=== PATIENT | female | born 2000 | race Caucasian/White ===

== ENCOUNTER 2025-02-27 13:29 | Emergency (ER) | payer MEDICAID, SELFPAY ==
[2025-02-27 13:48] VITALS: BP 115/69
[2025-02-27 14:26] LABS: Hematocrit 44.3 % (37.0-47.0); Hemoglobin 14.9 g/dL (12.0-16.0); Mean Corp Hgb Conc. 33.6 g/dL (33.0-37.0); Mean Corpuscular Volume 87.9 fL (81.0-99.0); Nucleated Red Blood Cells % 0 %; Platelet Count 286 10^3/uL (130-400); Red Cell Dist. Width 12.7 % (11.5-14.5)
[2025-02-27 14:39] LABS: HCG, Serum Qualitative Screen Negative
[2025-02-27 14:44] LABS: ALT (SGPT) 38 U/L (0-35); AST (SGOT) 31 U/L (14-36); Albumin 4.6 g/dl (3.5-5.0); Alkaline Phosphatase 72 U/L (38-126); Blood Urea Nitrogen 12 mg/dl (7-17); Calcium 9.7 mg/dl (8.4-10.2); Carbon Dioxide 28 mmol/L (22-30); Chloride 102 mmol/L (98-107); Glucose 87 mg/dl (70-99); Potassium 4.4 mmol/L (3.5-5.1); Sodium 137 mmol/L (135-145); Total Protein 7.4 g/dl (6.3-8.2); eGFR > 60.00
--- NOTE | 2025-02-27 16:57 | ED.GENMED ---
History of Present Illness
General
Chief Complaint: Anxiety
Source: patient
Time Seen by Provider: 02/27/25 16:36
History of Present Illness
History of Present Illness:
24-year-old female presenting to the ER for evaluation after experiencing a panic attack for multiple hours this morning, by the time arrived to the ER feeling much better and when I enter the room patient stating she would like to go home. Patient
states that her stress and anxiety is related to having to move 5 times within the last 6 months to keep, currently have a move out of her current living situation earlier today. Patient without any current physical concerns. Notes that she has a
therapist and psychiatrist that she is scheduled to see this coming week
Past History
Past History
ED Past Medical History: Psychiatric
ED Past Surgical History: None
Social History
Tobacco: Non-smoker
Alcohol: None
Drug: None
Personal: Partner
Living: with family
Review of Systems
Review of Systems
All Other Systems: ROS reviewed and negative except as documented in HPI and ROS
Phy Exam
Physical Exam
Physical Exam:
GENERAL: Alert , in no apparent distress making minimal eye contact
EYE: conjunctiva clear
Head: Normocephalic atraumatic
NECK: Supple,
ENT: mmm.
LUNGS: no acute respiratory distress
NEUROLOGICAL: Alert and oriented
SKIN: Warm and dry, skin intact.
MUSCULOSKELETAL: well perfused.
PSYCH: Normal and appropriate interaction.
Scores
Heart Failure Risk
Heart Failure Risk Score: Not Applicable
Heart Score for Chest Pain Patients
STEMI patient?: Not applicable
Withdrawal Assessment of Alcohol
Withdrawal Assessment Completed?: Not applicable
Course
Orders/Labs/Results
Orders:
Orders
02/27/25 13:56
Test Result ONCE
02/27/25 14:10
Complete Blood Count/With Diff Urgent
Comprehensive Metabolic Panel Urgent
HCG, Serum Qualitative Screen Urgent
Abnormal Lab Results
02/27/25
14:10
ALT 38 H U/L
(0-35)
02/27/25 14:10
02/27/25 14:10
Vital Signs
Initial and Last Documented VS:
Initial Vital Signs
Temp Pulse Resp BP Pulse Ox
98.5 F 84 18 115/69 97
02/27/25 13:48 02/27/25 13:48 02/27/25 13:48 02/27/25 13:48 02/27/25 13:48
Last Documented Vital Signs
Temp Pulse Resp BP Pulse Ox
98.5 F 84 18 115/69 97
02/27/25 13:48 02/27/25 13:48 02/27/25 13:48 02/27/25 13:48 02/27/25 16:57
MDM/Problems Addressed
Differential Diagnosis Includes:
Stress/Anxiey/Panic Disorder
Adjustment disorder
No SI/HI
No clinical concern for emergent physical process
MDM/Problems Addressed:
24-year-old female presenting to the ER with partner for evaluation of what appears to be anxiety/panic attack that has since resolved. Patient wishing to be discharged home. No SI or HI. Patient has outpatient follow-up already arranged.
Patient aware of return precautions to the ER.
Chronic conditions affecting care: Psychiatric illness
Acute Exacerbation and/or Progression of Chronic Illness: Psychiatric illness
*Pulse Oximetry
SaO2: 97
Oxygen Mode of Delivery: Room air
Patient hypoxic: no
*Critical Care Note
Total Time (30-74mins, 75-104mins- exclusive of procedures): Not Applicable
ED Attending Note
-
Portions of this chart may have been created with voice recognition software.� Occasional wrong word or��sound alike� substitutions may have occurred due to the inherent limitations of voice recognition software.
Discharge Plan
Departure
Patient Disposition: Home (Routine Discharge)
Date of Disposition: 02/27/25
Time of Disposition: 16:57
Patient with high blood pressure during this ER visit?: No
Discharge Problem:
Anxiety
Instructions: Anxiety, Adult (DC)
Interventions
Interventions:
*Risk Screen - Suicide Last Done: 02/27/25 13:48
*General Assessment Last Done: 02/27/25 13:48
*ED COVID-19 Vaccine History Last Done: 02/27/25 13:48
*ED Influenza Vaccine History Last Done: 02/27/25 13:48
*Nursing Disposition Last Done: 02/27/25 17:06
ED-Psychological Assessment Last Done: 02/27/25 16:16
Discharge Date and Time
Print Language: AUSTR[place]
== END 2025-02-27 17:21 | disposition home or self-care (01) ==
LOC: EMR 13:29
PROVIDERS: Emergency Medicine; EMERGENCY PHYSICIAN Emergency Medicine
DX: F41.9 Anxiety disorder, unspecified (principal)
CPT/HCPCS: 99283; 80053; 84703; 85025